=== PATIENT | female | born 1960 ===

== ENCOUNTER 2024-05-27 19:15 | Emergency (ER) | payer OTHER, SELFPAY ==
[~2024-05-27] VITALS: Ht 170.2 cm; Wt 91.6 kg
[2024-05-27] MEDS ORDERED: ELIQ5TAB PO (20:14)
[2024-05-27] MEDS ORDERED: ROSU20TA61 PO (20:25)
[2024-05-27] MEDS ORDERED: FURO20TA2 PO (20:25)
[2024-05-27] MEDS ORDERED: B-12100010 PO (20:25)
[2024-05-27] MEDS ORDERED: JARD1TAB PO (20:25)
[2024-05-27] MEDS ORDERED: FOLI1TAB11 PO (20:25)
[2024-05-27] MEDS ORDERED: BISA5TAB15 PO (20:25)
[2024-05-27] MEDS ORDERED: ASPI81CH33 PO (20:25)
[2024-05-27] MEDS ORDERED: LEVO125T4 PO (20:25)
[2024-05-27 21:00] LABS: BASO % 0.4 % (0.0-1.0); EOS # 0.3 10^3/uL (0.0-0.5); EOS % 3.9 % (0.0-3.0); HEMATOCRIT 36.4 % (36.0-47.0); HEMOGLOBIN 11.6 g/dl (12.0-15.5); LYMPH # 1.3 10^3/uL (1.5-5.0); LYMPH % 17.7 % (24.0-44.0); MEAN CORPUSCULAR HGB CONC 31.9 g/dl (32.0-36.5); MEAN CORPUSCULAR VOLUME 100.6 fl (80.0-96.0); MONO # 0.9 10^3/uL (0.0-0.8); MONO % 11.8 % (2.0-8.0); NEUTROPHILS # 4.8 10^3/uL (1.5-8.5); NEUTROPHILS % 65.8 % (36.0-66.0); PLATELET COUNT, AUTOMATED 251 10^3/uL (150-450); RED BLOOD COUNT 3.62 10^6/uL (4.00-5.40); WHITE BLOOD COUNT 7.2 10^3/uL (4.0-10.0)
[2024-05-27 21:21] LABS: LIPASE 32 U/L (12-53)
[2024-05-27 21:23] LABS: ALBUMIN 3.8 G/DL (3.2-5.2); ALKALINE PHOSPHATASE 123 U/L (46-116); ALT/SGPT 14 U/L (7.0-40); AST/SGOT 17 U/L (<34); BILIRUBIN,DIRECT 0.2 MG/DL (<0.4); BILIRUBIN,TOTAL 0.6 MG/DL (0.3-1.2); BLOOD UREA NITROGEN 20 MG/DL (9-23); CALCIUM LEVEL 9.2 MG/DL (8.3-10.6); CARBON DIOXIDE LEVEL 26 MMOL/L (20-31); CHLORIDE LEVEL 108 MMOL/L (98-107); CREATININE FOR GFR 0.72 MG/DL (0.55-1.30); GLOMERULAR FILTRATION RATE > 60.0 (>45); GLUCOSE, FASTING 100 MG/DL (74-106); POTASSIUM SERUM 5.6 MMOL/L (3.5-5.1); SODIUM LEVEL 141 MMOL/L (136-145); TOTAL PROTEIN 6.9 G/DL (5.7-8.2)
[2024-05-27 23:36] VITALS: BP 155/69; TEMP 98.5; O2SAT 97
== END 2024-05-28 00:37 | disposition left against medical advice (07) ==
LOC: M ED 19:15
DX: Z53.21 Procedure and treatment not carried out due to patient leaving prior to being seen by health care provider (principal)